=== PATIENT | female | born 1985 | race African-American/Black ===

== ENCOUNTER 2016-12-12 13:47 | Emergency (ER) | payer MEDICAID ==
[2016-12-12] MEDS ORDERED: SODIUM CHLORIDE 0.9% 1,000 ML ONE (15:06)
== END 2016-12-12 18:39 | disposition home or self-care (01) ==
LOC: ER 13:47
DX: R10.32 Left lower quadrant pain (principal); K64.4 Residual hemorrhoidal skin tags; Z79.899 Other long term (current) drug therapy
CPT/HCPCS: 36415; 74177; 80053; 81001; 83690; 85025; 87804; 96360